=== PATIENT | male | born 1945 | race Caucasian/White ===

== ENCOUNTER → 2016-06-28 | Outpatient (CLI) | payer OTHER ==
--- NOTE | 2016-06-28 16:00 | US ---
Left Groin Ultrasound on June 28, 2016 Indication: 70-year-old man with palpable pulsating left groin lump for 2 months. Patient has a histo ry of vascular surgery and graft. Technique: Left groin was evaluated with a high-resolution linear transducer in the short and long ax is plane with grayscale and color Doppler imaging. Three cinematic images were obtained through the a tammy of interest. A radiologist was not on-site at the [facility] imaging center to perform real-time travis ging. Findings: The palpable lump corresponds to a 4 x 3.5 x 3.5 cm thrombosed pseudoaneurysm emanating off the left lateral aspect of the anastomosis of the graft with the [place] femoral arteries. Limited im aged portion of the graft is widely patent. Extensive calcified and noncalcified atheroma at the anas tomosis with the [place] vessels results in high-grade stenosis evidenced by elevated velocities and s pectral broadening. 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 The pseudoaneurysm appears to emanate off the lateral margin of the anastomosis of the graft and [place] femoral arteries. Comment: The results were discussed with the patient and Dr. Bermudez shortly after study completion. Aristeo Bermudez will have the patient follow up with Dr. Perry.
== END ==
LOC: BRMIMAGING 14:09
PROVIDERS: ATTEND Internal Medicine
DX: I72.4 Aneurysm of artery of lower extremity (principal)
CPT/HCPCS: 76882-PO

== ENCOUNTER → 2016-07-05 | Outpatient (CLI) | payer OTHER ==
[~2016-07-05] MED LIST: IOPAMIDOL (ISOVUE 370) 100 ML BTL IV ONE
--- NOTE | 2016-07-07 09:24 | CT ---
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 Technique: 1.25-mm thin axial images are performed from the lung bases to the ankles during intraven ous contrast injection of 98 mL of Isovue-370. Coronal and parasagittal reformatted images are revi ewed on a separate workstation. Dose reduction techniques were utilized. Comparison: Ultrasound dated June 28, 2016. Findings CT angiogram of the abdomen and pelvis: It appears the patient has had an aortobifemoral bypass ann t. The visualized ascending thoracic aorta is moderately atherosclerotic, but normal in size at 2.8 c m. As it enters the hemidiaphragm, there is some mural thrombus. There is moderate narrowing for a lo ng segment of the proximal main celiac trunk, estimating about a 30-40% luminal narrowing. The rest o f the celiac trunk is normal with bifurcation towards splenic and hepatic system. The SMA is widely p atent. The left renal artery comes off almost exactly at the same location as the SMA. There is an accessory superior right renal artery that is very small that comes off shortly after that, immediately follow ed by the main right renal artery. The aorta at the level of the renal arteries also is moderately at herosclerotic with mural thrombus posteriorly, measuring at 3 cm transverse x 2.4 cm AP. Immediately after this, there is aneurysmal dilatation of the rest of the aorta, measuring at the lar gest segment 4.4 x 4 cm. I am unclear as to whether this represents [place] aorta or aneurysmal dilata tion of aorta to graft anastomosis, as I cannot see the true anastomosis to the graft. There are surg ical clips lower down. There is a short segment dissection flap at the anterior aspect of the largest diameter of the aorta. There are some calcifications surrounding this dissection flap and I assume t his indeed represents the [place] aortic vessel. Inferiorly, the [place] iliac vessels are completely occluded. There is a bypass graft anterior to the [place] iliac vessels. These bypass grafts are large in size, 15 mm in diameter on each side, continu ing down to the common femoral levels. Runoff angiogram: On the right, this large graft anastomosis to a very small SFA which measures norm ally 7 mm at best. It is moderately atherosclerotic at the graft to SFA anastomosis with 30-40% lumin al narrowing proximally very focally. Profunda is patent. SFA is moderately diseased with 50-60% sten osis at Edil's canal, with subsequent in-line flow to a patent popliteal artery. Tibioperoneal trunk is patent. There is runoff via posterior tibial and peroneal arteries. The anteri or tibial artery is moderately diseased. On the left, the graft also anastomoses to a very small SFA. There is a pseudoaneurysm coming off the lateral side of the anastomosis, partially thrombosed, partially patent. The entire aneurysm measure s 3.1 cm AP x 4.3 cm transverse. The transverse component also includes the graft. Without including the graft, the estimated transverse component measures 3.5 cm. 50% of the lumen is thrombosed. The SFA normally measures 5 mm. Profunda is patent in branches, but to the proximal origin of it appe ars to be significantly affected by a heavy plaque or calcification. There is also moderate calcifica tion of the proximal SFA. There is near complete focal occlusion of the proximal SFA at just 10 cm fr om the anastomosis, caused by soft medially located plaque. Going down, there is moderate calcificati on in midthigh that is causing focally 50-60% luminal narrowing. Again, additional segmental disease eventually causes complete occlusion of the SFA for a 10 cm segment through Edil's canal. Popliteal artery is reconstituted, but it is also significantly atherosclerotic just above the knee joint with high-grade 60% stenosis. Tibioperoneal trunk is patent, but diseased. Runoff vessels consist mostly of posterior tibial artery and anterior tibial artery. Peroneal artery tapers off. There is moderate calcification of the proximal segments of the posterior and anterior ti bial arteries. CT abdomen and pelvis: No developing adenopathy or mass. Lung bases are clear. Arterial phase evalua tion of the solid and visceral organs are normal. Impression: 1. It appears the patient has had an aortobifemoral bypass graft, bypassing natively occluded iliac a rteries. 2. 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 3. Focal dissection at the anterior aspect of the aneurysm of the abdominal aorta. 4. 15-mm diameter iliac bypass grafts anastomosing to much smaller superficial femoral arteries, cont ributing to a sharp transition in diameter. 5. Pseudoaneurysm at the left graft to SFA anastomosis, at best, excluding the graft Itself, measurin g 3.5 x 3.1 cm. It is partially thrombosed, partially patent. 6. Significantly diseased left SFA runoff with 10 cm distal occlusion and subsequent diseased poplite al and two-vessel runoff vessels as well. 7. Much better runoff on the right with a mostly patent SFA, except for segmental areas of narrowing and two-vessel runoff to ankle. Comment: The abdominal aortic aneurysm is not amenable to stent graft repair because there is no land ing zone below the renal arteries. The pseudoaneurysm on the left is also not amenable to percutaneou s repair because of the sharp transition of caliber between graft and [place] SFA and the cross joint location.
== END ==
LOC: FIMAGING 11:58
PROVIDERS: ATTEND Surgery
DX: I71.02 Dissection of abdominal aorta (principal); I72.4 Aneurysm of artery of lower extremity; T82.390A Other mechanical complication of aortic (bifurcation) graft (replacement), initial encounter
CPT/HCPCS: 75635; Q9967

== ENCOUNTER → 2016-07-24 | Outpatient (CLI) | payer OTHER | LOC: FIMAGING 07:08 | PROVIDERS: ATTEND Internal Medicine | DX: Z01.818 Encounter for other preprocedural examination (principal); I10 Essential (primary) hypertension; F17.200 Nicotine dependence, unspecified, uncomplicated ==

== ENCOUNTER 2016-08-06 05:50 | Inpatient (IN) | payer OTHER ==
[2016-08-06] MEDS ORDERED: ceFAZolin 2 GM/DEXTROSE 100 ML IV ONE (06:00)
[2016-08-06 07:31] LABS: % IMMATURE GRANULYOCYTES 0.3 % (0.0-1.1); ABSOLUTE IMMATURE GRANULOCYTES 0.02 10^3/uL (0.00-0.10); ADD DIFF? NO; ADD MORPH? NO; ADD SCAN? NO; ATYPICAL LYMPHOCYTE FLAG 20 (0-99); FRAGMENT RBC FLAG 0 (0-99); HEMATOCRIT 39.7 % (40.0-51.0); LEFT SHIFT FLG 0 (0-99); LIPEMIA HEMOLYSIS FLAG 90 (0-99); MEAN CELL HEMOGLOBIN 35.1 pg (27.9-34.1); MEAN CELL HEMOGLOBIN CONCENTR. 35.3 g/dL (32.4-36.7); MEAN CELL VOLUME 99.5 fL (81.5-99.8); MEAN PLATELET VOLUME 9.6 fL (8.7-11.7); PLATELET CLUMPS FLAG 10 (0-99); PLATELET COUNT 200 10^3/uL (150-400); RED BLOOD CELL COUNT 3.99 10^6/uL (4.40-6.38); RED CELL DISTRIBUTION WIDTH 13.2 % (11.5-15.2)
[2016-08-06 07:54] LABS: INR 1.01 (0.83-1.16); PROTIME(PATIENT) 13.2 SEC (12.0-15.0)
[2016-08-06 07:56] LABS: ANION GAP 12 mEq/L (8-16); CALCIUM 10.5 mg/dL (8.5-10.4); CARBON DIOXIDE 25 mEq/l (22-31); CHLORIDE 100 mEq/L (97-110); CREATININE 1.2 mg/dL (0.7-1.3); GLOMERULAR FILTRATION RATE > 60; GLUCOSE 117 mg/dL (70-100); POTASSIUM 4.6 mEq/L (3.5-5.2); SODIUM 137 mEq/L (134-144)
[2016-08-06] MEDS ORDERED: LIDOCAINE 1% 5 ML SDV ID PRN (08:01)
[2016-08-06] MEDS ORDERED: LR 1,000 ML IV ONE (08:01)
[2016-08-06] MEDS ORDERED: fentaNYL 100 MCG/2 ML INJ ONE (08:02)
[2016-08-06] MEDS ORDERED: HYDROmorphONE/DILAUDID 2 MG/ML INJ ONE (08:02)
[2016-08-06] MEDS ORDERED: ONDANSETRON 4 MG/2 ML VIAL ONE (08:02)
[2016-08-06] MEDS ORDERED: LIDOCAINE 2% 100 MG/5 ML SYR IVP ONE (08:02)
[2016-08-06] MEDS ORDERED: SUGAMMADEX SODIUM 200 MG/2 ML VIAL IVP ONE (08:02)
[2016-08-06] MEDS ORDERED: DEXAMETHASONE 4 MG/ML VIAL ONE (08:02)
[2016-08-06] MEDS ORDERED: ROCURONIUM 50 MG/5 ML VIAL ONE ×3 (08:02→11:34)
[2016-08-06] MEDS ORDERED: PROPOFOL 200 MG/20 ML VIAL ONE (08:03)
[2016-08-06] MEDS ORDERED: BUPIVACAINE 0.5% 30 ML SDV ONE (08:54)
[2016-08-06] MEDS ORDERED: PAPAVERINE HCL 60 MG/2 ML SDV ONE (08:55)
[2016-08-06] MEDS ORDERED: POLYMYXIN B SULFATE 500,000 UNIT/10 ML SYR IRR ONE (08:55)
[2016-08-06] MEDS ORDERED: IOTHALAMATE MEG (CONRAY) 50 ML VIAL IV ONE (08:55)
[2016-08-06] MEDS ORDERED: BACITRACIN 50,000 UNITS/10 ML SYR IRR ONE (08:55)
[2016-08-06] MEDS ORDERED: PHENYLEPHRINE HCL 100 MCG/ML SYR ONE (09:11)
[2016-08-06] MEDS ORDERED: MIDAZOLAM 2 MG/2 ML VIAL ONE (09:14)
[2016-08-06] MEDS ORDERED: HEPARIN 10,000 UNIT/10 ML MDV ONE ×2 (10:13→12:17)
[2016-08-06] MEDS ORDERED: PHENYLEPHRINE 10 MG/ML SDV ONE (10:19)
[2016-08-06] MEDS ORDERED: PROTAMINE SULFATE 50 MG/5 ML VIAL IVP ONE (12:27)
[2016-08-06] MEDS ORDERED: HYDROmorphONE/DILAUDID 1 MG/ML SYR IVP PRN (13:01)
[2016-08-06] MEDS ORDERED: ONDANSETRON 4 MG/2 ML VIAL IVP PRN (13:01)
--- NOTE | 2016-08-06 13:07 | POSTOPPROG ---
Post Op Note Date of Operation: 08/06/16 Surgeon: Reji Perry Concrete Floor Installer: Demetrice Stevensno Anesthesiologist: Phuc Gonzalez Anesthesia: GET(General Endotracheal) Pre-op Diagnosis: PVD, L femoral a aneurysm, hx of aortobifem bypass Post-op Diagnosis: same Indication: 70 Y M c PVD and 2-3 block L leg claudication. Procedure: abdove knee L femoropopliteal bypass, resection of femoral aneursym Findings: palpable pedal pulses post procedure Inf/Abcess present in the surg proc area at time of surgery?: No EBL: 700cc Specimen(s): aneurysm to path
[2016-08-06] MEDS ORDERED: ENALAPRILAT DIHYDRATE 1.25 MG/ML VIAL IVP PRN (15:18)
[2016-08-06] MEDS: ATORVASTATIN CALCIUM 10 MG TAB PO SCH (18:16)
[2016-08-06] MEDS: metFORMIN HCL 500 MG TAB PO SCH (18:16)
--- NOTE | 2016-08-06 19:07 | SOAPPROG ---
SOAP Progress Note Assessment/Plan: Assessment: POSTOP OK/ STRONG LEFT LEG PULSES Plan:PER ORDERS 08/06/16 19:06 Objective: Vital Signs Temp Pulse Resp BP Pulse Ox 36.4 C 97 17 142/106 H 96 08/06/16 14:15 08/06/16 18:00 08/06/16 18:00 08/06/16 18:00 08/06/16 18:00 Laboratory Results 08/06/16 07:19 08/06/16 07:19 08/05/16 08/06/16 08/07/16 05:59 05:59 05:59 Intake Total 3793 Output Total 1550 Balance 2243 PT 13.2 SEC (12.0-15.0) 08/06/16 07:19 INR 1.01 (0.83-1.16) 08/06/16 07:19 ICD10 Worksheet Patient Problems: Problems Problem Status Onset PVD (peripheral vascular disease) with claudication Acute - ICD10 Problem Qualifiers (1) PVD (peripheral vascular disease) with claudication
[2016-08-06] MEDS ORDERED: diphenhydrAMINE 25 MG CAP PO SCH (21:00)
[2016-08-06] MEDS ORDERED: NAPROXEN SODIUM 220 MG TAB PO SCH (21:00)
[2016-08-06] MEDS ORDERED: NAPROXEN NA DIPHENHYDRAMIN HCL PO SCH (21:00)
[2016-08-06] MEDS: NAPROXEN SODIUM 220 MG TAB PO SCH (21:03)
[2016-08-06] MEDS: diphenhydrAMINE 25 MG CAP PO SCH (21:03)
[2016-08-06] MEDS: AMITRIPTYLINE HCL 10 MG TAB PO SCH (21:04)
[2016-08-06] MEDS: buPROPion SR 150 MG TAB PO SCH (21:04)
[2016-08-07 05:06] LABS: HEMATOCRIT 28.4 % (40.0-51.0)
[2016-08-07 05:22] LABS: ANION GAP 7 mEq/L (8-16); CALCIUM 8.8 mg/dL (8.5-10.4); CARBON DIOXIDE 24 mEq/l (22-31); CHLORIDE 103 mEq/L (97-110); CREATININE 1.1 mg/dL (0.7-1.3); GLOMERULAR FILTRATION RATE > 60; GLUCOSE 102 mg/dL (70-100); POTASSIUM 4.3 mEq/L (3.5-5.2); SODIUM 134 mEq/L (134-144)
[2016-08-07] MEDS: ASPIRIN 81 MG CHEWABLE TAB PO SCH (07:54)
[2016-08-07] MEDS: buPROPion SR 150 MG TAB PO SCH ×2 (07:54→20:20)
[2016-08-07] MEDS: HYDROCHLOROTHIAZIDE 25 MG TAB PO SCH (07:54)
[2016-08-07] MEDS: LISINOPRIL 40 MG TAB PO SCH (07:55)
[2016-08-07] MEDS: metFORMIN HCL 500 MG TAB PO SCH ×2 (07:55→18:09)
[2016-08-07] MEDS: PANTOPRAZOLE SODIUM 40 MG TAB PO SCH (07:55)
--- NOTE | 2016-08-07 08:14 | SOAPPROG ---
SOAP Progress Note Assessment/Plan: Assessment: POSTOP OK/ STRONG LEFT LEG PULSES Plan:PER ORDERS 08/06/16 19:06 08/07/16 08:13 DOING WELL/ FULL PULSES/ AFEBRILE/ WOUNDS OK/ STABLE/ PLAN AMBULATE Objective: Vital Signs Temp Pulse Resp BP Pulse Ox 36.7 C 72 18 117/85 H 99 08/06/16 21:00 08/07/16 06:00 08/07/16 06:00 08/07/16 06:00 08/07/16 06:00 Laboratory Results 08/07/16 04:30 08/07/16 04:30 08/06/16 08/07/16 08/08/16 05:59 05:59 05:59 Intake Total 6593 Output Total 3350 Balance 3243 PT 13.2 SEC (12.0-15.0) 08/06/16 07:19 INR 1.01 (0.83-1.16) 08/06/16 07:19 ICD10 Worksheet Patient Problems: Problems Problem Status Onset PVD (peripheral vascular disease) with claudication Acute - ICD10 Problem Qualifiers (1) PVD (peripheral vascular disease) with claudication
[2016-08-07] MEDS ORDERED: NON-FORMULARY NEW DRUG (Omeprazole [Prilosec 20 Mg] 20 MG) PO SCH (09:00)
[2016-08-07] MEDS: OXYCODONE/APAP 5/325 TAB PO PRN (18:09)
[2016-08-07] MEDS: ATORVASTATIN CALCIUM 10 MG TAB PO SCH (18:09)
[2016-08-07] MEDS: NAPROXEN SODIUM 220 MG TAB PO SCH (20:20)
[2016-08-07] MEDS: AMITRIPTYLINE HCL 10 MG TAB PO SCH (20:20)
[2016-08-07] MEDS: diphenhydrAMINE 25 MG CAP PO SCH (20:21)
[2016-08-07 20:31] VITALS: RESP 16
[2016-08-07] MEDS: NS W/ 20 KCl/L 1,000 ML IV SCH ×2 (21:24→23:06)
[2016-08-08] MEDS: ASPIRIN 81 MG CHEWABLE TAB PO SCH (08:50)
[2016-08-08] MEDS: HYDROCHLOROTHIAZIDE 25 MG TAB PO SCH (08:50)
[2016-08-08] MEDS: LISINOPRIL 40 MG TAB PO SCH (08:50)
[2016-08-08] MEDS: metFORMIN HCL 500 MG TAB PO SCH (08:50)
[2016-08-08] MEDS: PANTOPRAZOLE SODIUM 40 MG TAB PO SCH (08:50)
[2016-08-08] MEDS: buPROPion SR 150 MG TAB PO SCH (08:50)
[2016-08-08] MEDS ORDERED: ENOXAPARIN 40 MG/0.4 ML SYR SC SCH (09:00)
[2016-08-08] MEDS: OXYCODONE/APAP 5/325 TAB PO PRN (09:57)
--- NOTE | 2016-08-08 10:05 | SOAPPROG ---
SOAP Progress Note Assessment/Plan: Assessment/Plan: 70 yo male s/p above knee left fempop bypass and resection of femoral aneurysm POD #2. Hypotensive, bilateral numbness, with weak right pedal pulse last night - resolved. Normotensive and palpable pedal pulses this AM. Encouraged ambulation. Continue regular diet. May go home today or tomorrow. Patient doing well. Pain well controlled. No complaints of numbness or dizziness. Tolerating diet. PE GEN: awake, alert, nad CHEST: CTA bilaterally COR: RRR ABD: soft, non tender, +BS EXT: no edema, erythema; normal pedal pulses bilaterally; inc CDI 08/08/16 09:55 Objective: Vital Signs Temp Pulse Resp BP Pulse Ox 36.6 C 77 16 143/75 H 95 08/08/16 07:31 08/08/16 07:31 08/08/16 07:31 08/08/16 08:50 08/08/16 07:31 Laboratory Results 08/07/16 04:30 08/07/16 04:30 08/07/16 08/08/16 08/09/16 05:59 05:59 05:59 Intake Total 6593 5021 Output Total 3350 1925 100 Balance 3243 3096 -100 PT 13.2 SEC (12.0-15.0) 08/06/16 07:19 INR 1.01 (0.83-1.16) 08/06/16 07:19 ICD10 Worksheet Patient Problems: Problems Problem Status Onset PVD (peripheral vascular disease) with claudication Acute
[2016-08-08 12:08] VITALS: BP 147/77; PULSE 90; TEMP 98.2; O2SAT 91
--- NOTE | 2016-08-12 21:13 | GOP ---
[f rep st] OPERATIVE REPORT DATE OF OPERATION: 08/06/2016 SURGEON: Reji Perry MD LAMP DEVELOPER: Demetrice Stevenson PA-C. ANESTHESIOLOGIST: Phuc Gonzalez MD. PREOPERATIVE DIAGNOSIS: 1. Left femoral pseudoaneurysm. 2. Left superficial femoral artery occlusion with claudication. POSTOPERATIVE DIAGNOSIS: 1. Left femoral pseudoaneurysm. 2. Left superficial femoral artery occlusion with claudication. PROCEDURE PERFORMED: 1. Left femoral-popliteal bypass and resection of a femoral pseudoaneurysm. 2. Left profundoplasty. FINDINGS: ESTIMATED BLOOD LOSS: Estimated at 700 cc. DESCRIPTION OF PROCEDURE: The patient was taken to the operating room where he received satisfactor y general endotracheal anesthesia by Dr. Gonzalez. He was placed in the supine position, prepped an d draped in the usual sterile fashion. A longitudinal incision was made in his left groin through a previous old scar. Dissection was carried down through the subcutaneous tissue and then immediatel y came into his pseudoaneurysm. This was carefully dissected free from surrounding subcutaneous tis patt and down to the previous background graft. Difficult dissection ensued to get around the Dacron graft inflow. There was a fair amount of bleeding that had to be suture ligated/suture repaired wi th 4-0 Prolene sutures. Eventually, the inflow graft could be controlled. This required dividing a portion of the inguinal ligament to get above the previous operated area. The superficial femoral artery distally was dissected free and controlled, and the profunda femoris artery was dissected rosi e and controlled with vessel loops. It was nearly impossible to control the [place] external iliac a nd common femoral artery. It was quite calcified, affixed to the femoral vein. After adequate expo sure was achieved, the patient was systemically heparinized. The vessels were then occluded after a dequate circulation time, and the pseudoaneurysm was entered. The thrombus and debris from the pseu doaneurysm was removed and the aneurysm was resected back to the [place] vessel wall and to the origi nal bypass graft. A small amount of bleeding was coming from the [place] iliac vessels and this was controlled by passing a balloon catheter up there to occlude that inflow. The edges of the vessels were all well identified and debrided. The origin of the profunda was well-seen. An 8 mm x 5 mm Go re-Chava graft was selected. This was fashioned to extend a limb over the profunda as a profundoplast y. The new graft was secured to the vessel wall with a running 4-0 Prolene suture, as well as being sutured to the inflow graft with that same 4-0 Prolene suture. All vessels were back-flushed prior to completion of the suture line, and flow was first established through the graft, and then to the superficial femoral artery, and then through the profunda femoris. The graft appeared to be hemost atic. Next, an incision was made in the medial side of the left thigh, dissection carried down into the popliteal fossa, and the popliteal vein was dissected free and controlled with vessel loops. T he dissection extended down behind the knee, as the proximal portion was highly calcified and occlud ed. The vessel was controlled with vessel loops. A Mónica tunneler was then passed subsartorially up to the groin incision and the bypass graft was then passed through the tunneler and down into th e popliteal space. It was trimmed to the appropriate length. An end-to-side anastomosis was then d one to the popliteal artery with a running Hemashield 7 suture. All vessels were all flushed prior to completion of the anastomosis. Flow was first established in a retrograde manner back up the pop liteal artery and then distally to the foot. This resulted in a good posterior tibial pulse. The s uture line appeared to be hemostatic. The heparin was then reversed with protamine and hemostasis w as further obtained in both wounds. Both were irrigated and sprayed with some topical thrombin and closed in layers using 2-0 Vicryl for the fascia, 3-0 Vicryl for the subcu, and skin alberto for the skin. He tolerated the procedure quite well. There were no complications. Blood loss was approxi mately 700 cc. /[id number]/MODL
--- NOTE | 2016-08-15 14:01 | GDS ---
[f rep st] DISCHARGE SUMMARY REASON FOR ADMISSION: Surgery for claudication. HOSPITAL COURSE: The patient is a 70-year-old male, who underwent surgery for significant left leg claudication, he underwent [id number] left femoral popliteal bypass and resection of femoral ane urysm. The patient's hospital course was remarkable for a brief episode of hypotension, which respo nded to fluids. He was discharged with a weak right pedal pulse that had improved upon being normot ensive, he had palpable pulses upon discharge. He was discharged home. He was discharged with instructions to follow up in our office approximately 10 days after surgery. He has an appointment on 08/15/2016. /[id number]/MODL
== END 2016-08-08 14:35 | disposition home or self-care (01) | DRG 254 ==
LOC: F3E 05:50 → F2N 11:19 → F3N 08-07 22:39
PROVIDERS: ADMIT Surgery; ATTEND Surgery
DX: I72.4 Aneurysm of artery of lower extremity (principal); I77.1 Stricture of artery; E11.9 Type 2 diabetes mellitus without complications; I10 Essential (primary) hypertension; F17.210 Nicotine dependence, cigarettes, uncomplicated
CPT/HCPCS: 97161-GP; 97165-GO; 97530-GO; C1757; C1768; G8978-GP-CJ; G8979-GP-CI; G8987-GO-CJ; G8988-GO-CI; J0690; J1100; J1170; J1644; J1650; J2001; J2250; J2370; J2405; J2440; J2704; J2720; J3010; Q9961

== ENCOUNTER → 2016-10-26 | Outpatient (CLI) | payer OTHER | LOC: BMCIMAGING 10:29 | PROVIDERS: ATTEND Internal Medicine | DX: M25.551 Pain in right hip (principal); M25.552 Pain in left hip; I70.90 Unspecified atherosclerosis | CPT/HCPCS: G0463-PO ==

== ENCOUNTER → 2018-03-04 | Outpatient (CLI) | payer OTHER | LOC: FIMAGING 11:17 | PROVIDERS: ATTEND Internal Medicine | DX: J44.9 Chronic obstructive pulmonary disease, unspecified (principal); I77.89 Other specified disorders of arteries and arterioles; F17.200 Nicotine dependence, unspecified, uncomplicated ==